=== PATIENT | male | born 1970 | race Two or more races ===

== ENCOUNTER 2022-10-11 20:53 | Emergency (ER) | payer OTHER ==
[~2022-10-11] VITALS: Ht 172.7 cm; Wt 113.6 kg
[2022-10-11 21:47] LABS: Urine Bacteria NONE SEEN /hpf (None Seen); Urine Blood Negative /uL (Negative); Urine Mucus FEW (None Seen); Urine Specific Gravity 1.016 (1.001-1.035); Urine WBC <1 /hpf (0 - 3)
[2022-10-11 22:00] LABS: Alcohol, Urine < 3.0 mg/dL (0-10); Amphetamine Screen, Urine NEGATIVE (NEGATIVE); Barbiturate Scree,Urine NEGATIVE (NEGATIVE); Benzodiazephine Screen, Urine NEGATIVE (NEGATIVE); Cannabinoid Screen, Urine NEGATIVE (NEGATIVE); Cocaine Screen, Urine NEGATIVE (NEGATIVE); Opiate Scree,Urine NEGATIVE (NEGATIVE); Phencyclidine Screen, Urine NEGATIVE (NEGATIVE)
[2022-10-12 02:08] LABS: Eosinophils % (auto) 4.7 % (0.0-7.0); Lymphocytes % (auto) 35.4 % (10.0-50.0); Monocytes % (auto) 8.5 % (0.0-12.0); Neutrophils % (auto) 50.4 % (37.0-80.0); White Blood Cell 7.7 10^3/uL (4.4-10.8)
[2022-10-12 02:09] LABS: Basophils # (auto) 0.1 10 ^3/uL (0-0.2); Eosinophils # (auto) 0.4 10 ^3/uL (0-0.8); Hematocrit 40.7 % (41.0-53.0); Hemoglobin 13.6 g/dL (13.5-17.5); Lymphocytes # (auto) 2.7 10 ^3/uL (0.4-5.4); Mean Corpuscular Hemoglobin 28.3 pg (28.0-32.0); Mean Corpuscular Hgb Conc. 33.3 g/dL (32.0-36.0); Mean Corpuscular Volume 84.7 fL (80.0-100.0); Monocytes # (auto) 0.7 10 ^3/uL (0-1.3); Neutrophils # (auto) 3.9 10 ^3/uL (1.6-8.6); Nucleated Red Blood Cells % 0.9 %; Red Cell Distribution Width 14.8 % (11.8-14.3)
[2022-10-12 02:15] LABS: Albumin 3.7 g/dL (3.4-5.0); BUN/Creatinine Ratio 7.8 (10.0-20.0); Calcium 9.1 mg/dL (8.5-10.1); Potassium 3.6 mmol/L (3.5-5.1); Salicylate 5.8 mg/dL (2.8-20.0)
[2022-10-12 02:18] LABS: Bilirubin, Total 0.3 mg/dL (0.2-1.0); Total Protein 7.4 g/dL (6.4-8.2)
[2022-10-12 02:19] LABS: Acetaminophen < 2.0 ug/mL (10-30)
[2022-10-12] MEDS ORDERED: HYDROcodone-ACET 5/325MG TAB PO ONE (04:15)
[2022-10-12 10:00] VITALS: BP 109/88
[2022-10-12] MEDS ORDERED: QUEtiapine FUMARATE 25 MG TAB PO SCH (22:00)
== END 2022-10-12 18:31 | disposition left against medical advice (07) ==
LOC: ER 20:53 → EDBD 20:53 → ER 21:45
DX: F60.0 Paranoid personality disorder (principal); F23 Brief psychotic disorder; F20.9 Schizophrenia, unspecified; Z59.00 Homelessness unspecified; Z20.822 Contact with and (suspected) exposure to COVID-19
CPT/HCPCS: 36415; 80053; 80307; 80320; 80329; 81001; 85025; 87426